=== PATIENT | male | born 1980 | race Hispanic/Latino ===

== ENCOUNTER 2019-09-12 08:18 | Emergency (ER) | payer OTHER, SELFPAY ==
[2019-09-12] MEDS ORDERED: Sodium Chloride Irrig Solution 250 ML BOT ONE (08:42)
[2019-09-12] MEDS ORDERED: Triple Antibiotic Oint 1 GM Packet ONE (09:05)
== END 2019-09-12 09:20 | disposition home or self-care (01) ==
LOC: MADERS 08:18
DX: S61.212A Laceration without foreign body of right middle finger without damage to nail, initial encounter (principal); S61.214A Laceration without foreign body of right ring finger without damage to nail, initial encounter; W26.8XXA Contact with other sharp object(s), not elsewhere classified, initial encounter
CPT/HCPCS: 12002